=== PATIENT | female | born 1950 | race Caucasian/White ===

== ENCOUNTER 2024-08-13 07:17 | Inpatient (IN) | payer MEDICARE, MEDICAID ==
[~2024-08-13] VITALS: Ht 162.6 cm; Wt 54.5 kg
[~2024-08-13 07:17] MED LIST: ENOX40SY14 SQ; FAMO20 PO; FURO40TA6 PO; LEVO25TA9 PO; METO25 PO; MULT-1203 PO; OLAN7.5T22 PO; QUET300T2 PO; SENN-7 PO; SIMV-260 PO
[2024-08-13] MEDS: LORazepam 2 MG/ML VIAL IM ONE ×2 (07:35→19:23)
[2024-08-13] MEDS: HALOPERIDOL LACTATE 5 MG/ML VIAL IM ONE ×2 (07:35→19:23)
[2024-08-13] MEDS: DiphenhydrAMINE HCL 50 MG/ML VIAL IM ONE ×3 (08:09→19:23)
[2024-08-13] MEDS ORDERED: ZIPRASIDONE MESYLATE 20 MG/VIAL IM ONE (08:54)
[2024-08-13] MEDS: ZIPRASIDONE MESYLATE 20 MG/VIAL IM ONE ×2 (09:14)
[2024-08-13 09:37] LABS: BASOPHILS % (AUTO) 0.8 % (0.0-2.0); EOSINOPHILS % (AUTO) 1.3 % (1.0-6.0); HEMATOCRIT 34.6 % (36-46); HEMOGLOBIN 11.6 g/dL (12.0-16.0); LYMPHOCYTES # (AUTO) 2.1 K/uL (1.0-4.8); LYMPHOCYTES % (AUTO) 26.5 % (22.0-44.0); MEAN CORPUSCULAR HEMOGLOBIN 30.4 pg (26.0-34.0); MEAN CORPUSCULAR HGB CONC 33.4 G/dL (31.0-37.0); MEAN CORPUSCULAR VOLUME 91 fL (80-100); MONOCYTES # (AUTO) 0.5 K/uL (0.1-1.0); MONOCYTES % (AUTO) 6.5 % (2.0-9.0); NEUTROPHILS # (AUTO) 5.1 K/uL (1.8-7.7); NEUTROPHILS % (AUTO) 64.9 % (40.0-70.0); PLATELET COUNT (AUTO) 353 K/uL (150-450); RED BLOOD CELL COUNT(AUTO) 3.81 MIL/uL (4.00-5.20); WHITE BLOOD COUNT (AUTO) 7.8 K/uL (4.5-11.0)
[2024-08-13 09:49] LABS: ANION GAP 8 mmol/L (8-16); CALCIUM, TOTAL 9.4 mg/dL (8.8-10.5); CARBON DIOXIDE 27 mmol/L (22-29); CHLORIDE 101 mmol/L (98-107); CREATININE 0.88 mg/dL (0.60-1.30); GLOMERULAR FILTR. RATE CALC > 60 mL/min (>60); GLUCOSE,RANDOM 131 mg/dL (70-110); POTASSIUM 3.1 mmol/L (3.5-5.1); SODIUM SERUM 136 mmol/L (136-145); UREA NITROGEN, BLOOD 11 mg/dL (7-18)
[2024-08-13 09:57] LABS: TROPONIN I-HIGH SENSITIVITY 23 ng/L (<51)
[2024-08-13 10:05] LABS: AMMONIA < 10 umol/L (11-32)
[2024-08-13 10:15] LABS: ALANINE AMINOTRANSFERASE 15 U/L (12-78); ALBUMIN 2.8 g/dL (3.4-5.0); ALKALINE PHOSPHATASE 112 U/L (46-116); ASPARTATE AMINOTRANSFERASE 25 U/L (15-37); BILIRUBIN,TOTAL 0.3 mg/dL (0.1-1.0); CREATINE KINASE, TOTAL ONLY 220 U/L (26-192); THYROID STIMULATING HORMONE 5.15 uIU/mL (0.36-3.74); TOTAL PROTEIN, SERUM 7.8 g/dL (6.4-8.2)
[2024-08-13] MEDS: LORazepam 2 MG/ML VIAL IVP ONE (14:29)
[2024-08-13 16:02] LABS: COVID AG,FIA SOURCE NASAL SWAB
[2024-08-13 16:25] LABS: SARS-COV2 (COVID) ANTIGEN,FIA Negative (Negative)
[2024-08-13] MEDS: POTASSIUM CHLORIDE 20 MEQ ER TABLET PO ONE (17:24)
[2024-08-13] MEDS: LORazepam 2 MG TABLET PO PRN (17:26)
[2024-08-13] MEDS: HALOPERIDOL 5 MG TABLET PO PRN (17:26)
[2024-08-13 18:35] VITALS: O2SAT 98
[2024-08-13] MEDS ORDERED: MAGNESIUM HYDROXIDE SUSPENSION 30 ML UDCUP PO PRN (22:45)
[2024-08-13] MEDS ORDERED: CloNIDine HCL 0.1 MG TABLET PO PRN (22:45)
[2024-08-13] MEDS ORDERED: OMEPRAZOLE 20 MG CAPSULE PO PRN (22:45)
[2024-08-13] MEDS ORDERED: BACITRACIN 28 GM OINTMENT TP PRN (22:45)
[2024-08-13] MEDS ORDERED: ONDANSETRON 4 MG TABLET PO PRN (22:45)
[2024-08-13] MEDS ORDERED: ALBUTEROL SULFATE HFA 90 MCG/PUFF 8 GM INHALER IH PRN (22:45)
[2024-08-13] MEDS ORDERED: DOCUSATE SODIUM 100 MG CAPSULE PO PRN (22:45)
[2024-08-13] MEDS ORDERED: LOPERAMIDE HCL 2 MG CAPSULE PO PRN (22:45)
[2024-08-13] MEDS ORDERED: BENZOCAINE/MENTHOL LOZENGE PO PRN (22:45)
[2024-08-13] MEDS ORDERED: PETROLATUM,WHITE 28 GM JELLY TP PRN (22:45)
[2024-08-14] MEDS ORDERED: INFLUENZA VIRUS VACCINE TVS (6MO+) 2024-25/PF 45 MCG/0.5 ML SYRINGE IM. ONE (03:00)
[2024-08-14] MEDS ORDERED: PNEUMOCOCCAL VACCINE POLYVALENT 0.5 ML SYRINGE [PPSV23] IM. ONE (03:00)
[2024-08-14] MEDS: LEVOTHYROXINE SODIUM 25 MCG TABLET PO SCH (07:00)
[2024-08-15 10:06] VITALS: BP 149/72; PULSE 97; RESP 18; TEMP 97.6; O2SAT 99
[2024-08-15] MEDS: IBUPROFEN 600 MG TABLET PO PRN (10:06)
[2024-08-15] MEDS: POTASSIUM CHLORIDE 20 MEQ ER TABLET PO SCH (10:08)
[2024-08-15 17:20] VITALS: BP 136/75; PULSE 94; RESP 20
[2024-08-15] MEDS: OLANZapine 7.5 MG TABLET PO SCH (20:56)
[2024-08-16 04:00] VITALS: TEMP 98.5
[2024-08-16 08:58] VITALS: BP 151/63; PULSE 87; RESP 18; TEMP 97.8; O2SAT 98
[2024-08-16] MEDS: MAG HYDROX/ALUMINUM HYD/SIMETH ES 30 ML SUSPENSION UDCUP PO PRN (09:56)
[2024-08-16 15:58] VITALS: BP 151/63; PULSE 87; RESP 16; TEMP 97.8; O2SAT 98
[2024-08-16 17:53] VITALS: BP 136/88; PULSE 69; RESP 16; TEMP 98; O2SAT 98
[2024-08-16] MEDS: ZOLPIDEM TARTRATE 10 MG TABLET PO PRN (22:31)
[2024-08-17 08:50] VITALS: BP 157/77; PULSE 85; RESP 18; TEMP 97.5; O2SAT 97
[2024-08-17 18:23] VITALS: BP 157/70; PULSE 92; RESP 18; TEMP 97.5; O2SAT 100
[2024-08-17 23:07] VITALS: RESP 18; TEMP 97.2
[2024-08-18] MEDS: MENTHOL/ZINC OXIDE 113 GM OINTMENT TP SCH (08:18)
[2024-08-18 09:25] VITALS: BP 124/78; PULSE 95; RESP 19; TEMP 97.2; O2SAT 97
[2024-08-18 15:48] VITALS: BP 136/85; PULSE 89; RESP 19; O2SAT 98
[2024-08-18 21:42] VITALS: BP 108/65; PULSE 84; RESP 16; TEMP 97; O2SAT 96
[2024-08-18] MEDS: ACETAMINOPHEN 325 MG TABLET PO PRN (21:42)
[2024-08-19 09:18] VITALS: BP 137/71; PULSE 104; RESP 18; TEMP 97.9; O2SAT 99
[2024-08-19 20:14] VITALS: BP 124/97; PULSE 99; RESP 18; TEMP 97.7; O2SAT 97
[2024-08-20 08:45] VITALS: BP 139/74; PULSE 75; RESP 17; TEMP 97.8; O2SAT 98
[2024-08-20 20:57] VITALS: BP 142/63; PULSE 90; RESP 17; TEMP 96.9; O2SAT 99
[2024-08-21 08:22] VITALS: BP 130/72; PULSE 107; RESP 18; TEMP 97.2; O2SAT 96
[2024-08-21 09:21] VITALS: RESP 17
[2024-08-21] MEDS ORDERED: OLAN7.5T22 PO (16:59)
== END 2024-08-21 17:30 | DRG 885 ==
LOC: EMS 07:24 → 3EI 19:39
PROVIDERS: ADMIT Psychiatry & Neurology Psychiatry; ATTEND Psychiatry & Neurology Psychiatry
PROC: GZHZZZZ Group Psychotherapy (ICD-10-PCS; principal; 2024-08-21)
PROC: GZ51ZZZ Individual Psychotherapy, Behavioral (ICD-10-PCS; 2024-08-21)
DX: F25.0 Schizoaffective disorder, bipolar type (principal); Z93.3 Colostomy status; E03.9 Hypothyroidism, unspecified; D64.9 Anemia, unspecified; E87.6 Hypokalemia; Z20.822 Contact with and (suspected) exposure to COVID-19; I10 Essential (primary) hypertension; J44.9 Chronic obstructive pulmonary disease, unspecified; I48.0 Paroxysmal atrial fibrillation; E78.5 Hyperlipidemia, unspecified; F41.9 Anxiety disorder, unspecified; G89.29 Other chronic pain; M54.9 Dorsalgia, unspecified; M19.90 Unspecified osteoarthritis, unspecified site
CPT/HCPCS: 71045; 80053; 82140; 82550; 84132; 84443; 84484; 85025; 87081; 87481; 92610; 93005; 99291; J1200; J1630; J2060; J3486; 36415-L1; 36415-TC